=== PATIENT | female | born 1980 | race Hispanic/Latino ===

== ENCOUNTER 2020-01-13 12:12 | Emergency (ER) | payer MEDICARE ==
--- NOTE | 2020-01-13 14:08 | Emergency Department Report ---
Blank Doc - Documentation Documentation: 39-year-old female that presents with pelvic pain. This initial assessment/diagnostic orders/clinical plan/treatment(s) is/are subject to change based on patient's health status, clinical progression and re- assessment by fellow clinical providers in the ED. Further treatment and workup at subsequent clinical providers discretion. Patient/guardians urged not to elope from the ED as their condition may be serious if not clinically assessed and managed. Initial orders include: 1- Patient sent to [facility] for further evaluation and treatment 2- UA
[2020-01-13 15:50] LABS: Bacteria,Urine 1+ /HPF (Negative); Bilirubin,Urine NEG (Negative); Blood,Urine NEG (Negative); Color,Urine Yellow (Yellow); Mucus,Urine FEW /HPF; Protein,Urine <15 mg/dL mg/dL (Negative); Urobilinogen,Urine < 2.0 mg/dL (<2.0)
[2020-01-13 15:53] LABS: HCG Qualitative,Urine Negative (Negative)
[2020-01-13] MEDS ORDERED: DICYCLOMINE 20 MG TAB PO ONE (16:17)
[2020-01-13] MEDS ORDERED: ALUM-MAG HYDROXIDE-SIMETHICONE 200-200-20MG/5ML ORAL LIQD 30 ML PO ONE (16:17)
[2020-01-13] MEDS ORDERED: ONDANSETRON 4 MG ODT TAB PO ONE (16:17)
--- NOTE | 2020-01-13 16:19 | Emergency Department Report ---
HPI - General Chief Complaint: Urogenital-Female Time Seen by Provider: 01/13/20 14:04 - HPI HPI: This is a 39-year-old female here complaining of cramping to pelvic area and nausea. Denies any vomiting or diarrhea. Denies any constipation. Denies any fever or chills. Denies any cough or difficulty breathing. Denies any sore throat. Pelvic cramping 2 out of 10 on and off. Patient reports that she had a urinary tract infection and she was on nitrofurantoin which she completed last week. She said she is having similar symptoms of abdominal cramping, nausea and urinary frequency. No medication taken prior to coming to the emergency room. Patient reports that she has a lot of anxieties and stress in her life and she just moved to [place] and she does not have a primary care physician and would like to be referred to 1. ED Past Medical Hx - Past Medical History Previous Medical History?: Yes Hx Psychiatric Treatment: Yes (anxiety,depression,bipolar) - Surgical History Past Surgical History?: No - Family History Family history: hypertension - Social History Smoking Status: Never Smoker Substance Use Type: None - Medications Home Medications: Home Medications Medication Instructions Recorded Confirmed Last Taken Type cephALEXin [Keflex] 500 mg PO Q12H 7 Days #14 cap 01/13/20 Unknown Rx ED Review of Systems ROS: Stated complaint: CRAMPING Other details as noted in HPI Constitutional: denies: chills, fever Respiratory: denies: cough, shortness of breath, wheezing Cardiovascular: denies: chest pain, palpitations, edema, syncope Gastrointestinal: abdominal pain (Pelvic cramping), nausea. denies: vomiting, diarrhea, constipation, hematemesis, melena, hematochezia Genitourinary: frequency. denies: urgency, dysuria, hematuria, discharge, abnormal menses Musculoskeletal: denies: back pain, joint swelling, arthralgia Skin: denies: rash Neurological: denies: headache Physical Exam - Physical Exam Vital Signs: Vital Signs 01/13/20 14:04 Temperature 99 F Pulse Rate 112 H Respiratory 16 Rate Blood Pressure 123/78 O2 Sat by Pulse 98 Oximetry General: This is a 39-year-old female well-nourished well-developed in no acute distress. Physical Exam: Head: Normocephalic atraumatic. Mouth: Oral mucosa moist, tongue is normal, uvula is midline, no [employer] or drooling, oral airways patent and uvula is Lungs: Clear to auscultated bilaterally, no rhonchi wheezes or rales. No use of accessory muscles. Neck: Supple, no tracheal deviation. No C-spine tenderness and full range of motion. CV: S1, S2. Regular rate Abdomen: Nontender to palpate in all quadrants, normal bowel sounds in all quadrants. No distention. Skin: Patient with areas 2 face bilaterally with dry scaly, no erythema or swelling noted. No drainage or indurated area. Extremity: No cce. + 2 pulses in all extremities, no neurovascular compromise. Mood: Normal mood and behavior Neurological: No focal neurological deficit. She is able to ambulate without any difficulties. Normal gait, speech is clear fluid, she is alert and oriented 3, n Back: Nontender to palpate to vertebral spine from C-spine to L-spine including sacral area. no CVA tenderness. No rash noted. ED Course Vital Signs 01/13/20 14:04 Temperature 99 F Pulse Rate 112 H Respiratory 16 Rate Blood Pressure 123/78 O2 Sat by Pulse 98 Oximetry - Reevaluation(s) Reevaluation #1: 01/13/20 16:32 Patient given Maalox 30 cc, lidocaine 15 cc and Bentyl 40 mg p.o. for stomach cramping. She was also given Zofran 8 mg ODT. I will reevaluate. Abdominal exam nontender to palpate but did report nausea with palpation. Reevaluation #2: 01/13/20 17:49 Patient is stable and says she is feeling a lot better. No nausea or cramping at present ED Medical Decision Making - Lab Data Lab Results 01/13/20 Range/Units 15:35 Urine Color Yellow (Yellow) Urine Turbidity Slightly-cloudy (Clear) Urine pH 8.0 H (5.0-7.0) Ur Specific [place] 1.018 (1.003-1.030) Urine Protein <15 mg/dl (Negative) mg/dL Urine Glucose (UA) Neg (Negative) mg/dL Urine Ketones Tr (Negative) mg/dL Urine Blood Neg (Negative) Urine Nitrite Neg (Negative) Urine Bilirubin Neg (Negative) Urine Urobilinogen < 2.0 (<2.0) mg/dL Ur Leukocyte Esterase Neg (Negative) Urine WBC (Auto) 1.0 (0.0-6.0) /HPF Urine RBC (Auto) 2.0 (0.0-6.0) /HPF U Epithel Cells (Auto) 1.0 (0-13.0) /HPF Urine Bacteria (Auto) 1+ (Negative) /HPF Urine Mucus Few /HPF Urine HCG, Qual Negative (Negative) Urine culture sent Critical care attestation.: If time is entered above; I have spent that time in minutes in the direct care of this critically ill patient, excluding procedure time. ED Disposition Clinical Impression: Nausea alone Acute cystitis Qualifiers: Hematuria presence: without hematuria Qualified Code(s): N30.00 - Acute cystitis without hematuria Disposition: TO HOME OR SELFCARE Is pt being admited?: No Does the pt Need Aspirin: No Condition: Stable Instructions: Urinary Tract Infection in Women (ED) Additional Instructions: Please follow-up with primary care physician as directed. If your condition worsens, return to the emergency room Take medication as prescribed Increase your fluid intake You will need to have a repeat urinalysis and 7 to 10 days. Referrals: Follow-up, [facility] [Other] - 01/15/20
[2020-01-13 18:18] VITALS: BP 120/74
== END 2020-01-13 18:17 | disposition home or self-care (01) ==
LOC: ED 12:12
DX: R11.0 Nausea (principal); N30.00 Acute cystitis without hematuria
CPT/HCPCS: 81001; 81025; 87086; 99283; Q0162